=== PATIENT | female | born 1965 | race American Indian/Alaskan Native ===

== ENCOUNTER 2020-04-20 22:14 | Emergency (ER) | payer BC ==
[2020-04-20] MEDS ORDERED: HYDROmorphone 0.5 MG/0.5 ML Syringe IVPUSH ONE (23:15)
[2020-04-20] MEDS: Sodium Chloride 0.9% 1,000 ML IV SCH (23:25)
[2020-04-21] MEDS: Sodium Chloride 0.9% 1,000 ML IV SCH (00:43)
[2020-04-21] MEDS ORDERED: Sodium Chloride 0.9% 1,000 ML IV SCH (00:45)
--- NOTE | 2020-04-21 00:46 | EDM.PDOC ---
ED HPI GENERAL MEDICAL PROBLEM - General Chief Complaint: Abdominal Pain Stated Complaint: UPPER ABDOMINAL PAIN Time Seen by Provider: 04/20/20 22:40 Source of Information: Reports: Patient History Limitations: Reports: No Limitations - History of Present Illness INITIAL COMMENTS - FREE TEXT/NARRATIVE: pt is having severe upper abdomanal pain which started about 5 pm. She had been in [place] and after getting home this started. She has not vomited. She has not had pain like this in the past. Onset: Today, Sudden, Other (pt had eaten some calix and fried potatoes. ) Duration: Hour(s): Location: Reports: Abdomen Associated Symptoms: Reports: Weakness Epigastric Pain Score (Numeric/FACES): 5 - Related Data Allergies Allergy/AdvReac Type Severity Reaction Status Date / Time No Known Allergies Allergy Verified 04/20/20 22:52 Home Meds: Home Meds Calcium Carbonate [Calcium] 500 mg PO DAILY 04/20/20 [History] Cholecalciferol (Vitamin D3) [Vitamin D] 5,000 unit PO DAILY 04/20/20 [History] Levothyroxine Sodium [Synthroid] 25 mcg PO DAILY 04/20/20 [History] Sertraline HCl [Zoloft] 200 mg PO DAILY 04/20/20 [History] Thyroid,Pork [[place] Thyroid] 30 mg PO DAILY 04/20/20 [History] Past Medical History HEENT History: Reports: Impaired Vision 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: Musculoskeletal History: Reports: Fracture, Other (See Below) Other Musculoskeletal History: compression fracture L1 Psychiatric History: Reports: Panic Attack Endocrine/Metabolic History: Reports: Hypothyroidism - Infectious Disease History Infectious Disease History: Reports: Chicken Pox - Past Surgical History Musculoskeletal Surgical History: Reports: Other (See Below) Other Musculoskeletal Surgeries/Procedures:: left ankle surg Social & Family History - Tobacco Use Smoking Status *Q: Never Smoker Second Hand Smoke Exposure: No - Caffeine Use Caffeine Use: Reports: Coffee - Recreational Drug Use Recreational Drug Use: No ED ROS GENERAL - Review of Systems Review Of Systems: See Below Constitutional: Reports: No Symptoms HEENT: Reports: No Symptoms Respiratory: Reports: No Symptoms Cardiovascular: Reports: No Symptoms Endocrine: Reports: No Symptoms GI/Abdominal: Reports: Abdominal Pain, Nausea : Reports: No Symptoms Musculoskeletal: Reports: No Symptoms Skin: Reports: No Symptoms Neurological: Reports: No Symptoms ED EXAM, GI/ABD - Physical Exam Exam: See Below Text/Narrative:: pt arrived with acute upper abdomanal pain. She states this started suddenly about 5 pm. Earlier in the day she had eaten some greasey foods. She had normal stools. Exam Limited By: No Limitations General Appearance: Alert, Anxious, Moderate Distress, Other (pt is rating her pain at a 7. ) Ears: Normal TMs Nose: Normal Inspection Throat/Mouth: Normal Inspection Head: Atraumatic Neck: Normal Inspection Respiratory/Chest: No Respiratory Distress Cardiovascular: Regular Rate, Rhythm GI/Abdominal Exam: Other (pt is tender in the upper abdoman. ) (Female) Exam: Deferred Rectal (Female) Exam: Deferred Back Exam: Normal Inspection Extremities: Normal Inspection Neurological: Alert, Oriented, Normal Cognition Course - Vital Signs Last Recorded V/S: Last Vital Signs Temp 35.0 C L 04/20/20 23:56 Pulse 58 L 04/20/20 23:56 Resp 18 04/20/20 23:56 BP 144/72 H 04/20/20 23:56 Pulse Ox 98 04/20/20 23:56 - Orders/Labs/Meds Orders: Active Orders 24 hr Category Date Time Status Abdomen Ltd [US] Stat Exams 04/20/20 23:31 Taken UA W/MICROSCOPIC [URIN] Urgent Lab 04/20/20 22:39 Ordered Sodium Chloride 0.9% [Normal Saline] 1,000 ml Med 04/20/20 23:15 Active IV ASDIRECTED Sodium Chloride 0.9% [Normal Saline] 1,000 ml Med 04/21/20 00:45 Active IV ASDIRECTED Medication Orders Sodium Chloride (Normal Saline) 1,000 mls @ 999 mls/hr IV ASDIRECTED AGA Last Admin: 04/21/20 00:43 Dose: 999 mls/hr Infusion: 04/21/20 00:26 Dose: 999 mls/hr Admin: 04/20/20 23:25 Dose: 999 mls/hr Sodium Chloride (Normal Saline) 1,000 mls @ 999 mls/hr IV ASDIRECTED AGA Last Admin: 04/21/20 00:44 Dose: 999 mls/hr Labs: Laboratory Tests 04/20/20 04/20/20 04/20/20 Range/Units 22:47 22:47 22:47 WBC 8.8 (4.5-11.0) K/uL RBC 4.35 (3.30-5.50) M/uL Hgb 12.1 (12.0-15.0) g/dL Hct 38.1 (36.0-48.0) % MCV 88 (80-98) fL MCH 28 (27-31) pg MCHC 32 (32-36) % Plt Count 230 (150-400) K/uL Neut % (Auto) 77 H (36-66) % Lymph % (Auto) 14 L (24-44) % [place] % (Auto) 6 (2-6) % Eos % (Auto) 3 (2-4) % Baso % (Auto) 1 (0-1) % Sodium 141 (140-148) mmol/L Potassium 4.1 (3.6-5.2) mmol/L Chloride 105 (100-108) mmol/L Carbon Dioxide 28 (21-32) mmol/L Anion Gap 7.6 (5.0-14.0) mmol/L BUN 14 (7-18) mg/dL Creatinine 1.2 H (0.6-1.0) mg/dL Est Cr Clr Drug Dosing 46.82 mL/min Estimated GFR (MDRD) 47 L (>60) Glucose 124 H (74-106) mg/dL Calcium 8.5 (8.5-10.1) mg/dL Total Bilirubin 0.8 (0.2-1.0) mg/dL AST 113 H (15-37) U/L ALT 72 (12-78) U/L Alkaline Phosphatase 85 (46-116) U/L C-Reactive Protein 0.32 H (0.0-0.3) mg/dL Total Protein 7.3 (6.4-8.2) g/dL Albumin 4.1 (3.4-5.0) g/dL Globulin 3.2 (2.3-3.5) g/dL Albumin/Globulin Ratio 1.3 (1.2-2.2) Lipase (73-393) U/L 04/20/20 Range/Units 22:47 WBC (4.5-11.0) K/uL RBC (3.30-5.50) M/uL Hgb (12.0-15.0) g/dL Hct (36.0-48.0) % MCV (80-98) fL MCH (27-31) pg MCHC (32-36) % Plt Count (150-400) K/uL Neut % (Auto) (36-66) % Lymph % (Auto) (24-44) % [place] % (Auto) (2-6) % Eos % (Auto) (2-4) % Baso % (Auto) (0-1) % Sodium (140-148) mmol/L Potassium (3.6-5.2) mmol/L Chloride (100-108) mmol/L Carbon Dioxide (21-32) mmol/L Anion Gap (5.0-14.0) mmol/L BUN (7-18) mg/dL Creatinine (0.6-1.0) mg/dL Est Cr Clr Drug Dosing mL/min Estimated GFR (MDRD) (>60) Glucose (74-106) mg/dL Calcium (8.5-10.1) mg/dL Total Bilirubin (0.2-1.0) mg/dL AST (15-37) U/L ALT (12-78) U/L Alkaline Phosphatase (46-116) U/L C-Reactive Protein (0.0-0.3) mg/dL Total Protein (6.4-8.2) g/dL Albumin (3.4-5.0) g/dL Globulin (2.3-3.5) g/dL Albumin/Globulin Ratio (1.2-2.2) Lipase 132 (73-393) U/L Meds: Medications Generic Name Dose Route Start Last Admin Trade Name Manuelq PRN Reason Stop Dose Admin Sodium Chloride 1,000 mls @ 999 mls/hr 04/20/20 23:15 04/21/20 00:43 Normal Saline IV 999 mls/hr ASDIRECTED AGA Administration Sodium Chloride 1,000 mls @ 999 mls/hr 04/21/20 00:45 04/21/20 00:44 Normal Saline IV 999 mls/hr ASDIRECTED AGA Administration Discontinued Medications Generic Name Dose Route Start Last Admin Trade Name Freq PRN Reason Stop Dose Admin Hydromorphone HCl 0.5 mg 04/20/20 23:15 04/20/20 23:27 Dilaudid IVPUSH 04/20/20 23:16 0.5 mg ONETIME ONE Administration - Re-Assessments/Exams Free Text/Narrative Re-Assessment/Exam: 04/21/20 00:47 pt was given 1.5 liters of fluid. She had a Us on her GB. She had mild thickening of the GB wall and she had a stone in the GB. Her common duct did look wide. She is much more comfortable at this point. Departure - Departure Time of Disposition: 00:48 Disposition: Home, Self-Care 01 Condition: Fair Clinical Impression: Gallbladder calculus with acute cholecystitis and no obstruction - Discharge Information Referrals: PCP,None [Primary Care Provider] - Forms: ED Department Discharge Care Plan Goals: avoid greasey food, appt with the surgeon to discuss her situation, rtc if her pain should reoccur. norco 5/325 q6h prn for pain #6 Sepsis Event Note - Evaluation Sepsis Screening Result: No Definite Risk - Focused Exam Vital Signs: Vital Signs Temp Pulse Resp BP Pulse Ox 04/20/20 23:56 35.0 C L 58 L 18 144/72 H 98 04/20/20 22:33 35.0 C L 58 L 18 144/72 H 98 Date Exam was Performed: 04/21/20 Time Exam was Performed: 00:55 - My Orders Last 24 Hours: My Active Orders 04/20/20 22:39 UA W/MICROSCOPIC [URIN] Urgent 04/20/20 23:15 Sodium Chloride 0.9% [Normal Saline] 1,000 ml IV ASDIRECTED 04/21/20 00:45 Sodium Chloride 0.9% [Normal Saline] 1,000 ml IV ASDIRECTED - Assessment/Plan Last 24 Hours: My Active Orders 04/20/20 22:39 UA W/MICROSCOPIC [URIN] Urgent 04/20/20 23:15 Sodium Chloride 0.9% [Normal Saline] 1,000 ml IV ASDIRECTED 04/21/20 00:45 Sodium Chloride 0.9% [Normal Saline] 1,000 ml IV ASDIRECTED
--- NOTE | 2020-04-21 01:09 | CRLUS ---
INDICATION: Right upper quadrant pain TECHNIQUE: Ultrasound abdomen limited. Sonographic images of the right upper quadrant were obtained using solis-scale and color Doppler images. COMPARISON: None FINDINGS: Liver: Normal in size with diffuse fatty infiltration and probable areas of focal fatty scarring. No masses. Evidence of intrahepatic biliary dilatation. Gallbladder: 9 millimeter mobile gallstone gallbladder wall thickening at 4 millimeters. No pericholecystic fluid. Common bile duct: 9 mm. Pancreas: Normal. Right kidney: 8.8 cm. Normal echotexture and cortex. No masses, stones, or hydronephrosis. Vasculature: Proximal abdominal aorta and IVC are normal. IMPRESSION: Dilated common bile duct to 9 millimeters with intrahepatic biliary ductal dilatation. Fatty infiltration of liver with areas of focal fatty sparing. 9 millimeter mobile gallstone with gallbladder wall thickening up to 4 millimeters. Dictated by Montana Perez MD @ 04/21/2020 1:07:41 AM Dictated by: Montana Perez MD @ 04/21/2020 01:07:45 (Electronically Signed)
== END 2020-04-21 01:20 | disposition home or self-care (01) ==
LOC: JP.ED 22:14
DX: K80.00 Calculus of gallbladder with acute cholecystitis without obstruction (principal); E03.9 Hypothyroidism, unspecified; Z79.899 Other long term (current) drug therapy
CPT/HCPCS: 36415; 76705; 80053; 83690; 85025; 86140; 99284; J1170; J7030

== ENCOUNTER 2020-05-10 06:43 | Day surgery (SDC) | payer BC ==
[2020-05-10] MEDS ORDERED: Sodium Chloride 0.9% 1,000 ML IV SCH (07:00)
[2020-05-10] MEDS: Bupivacaine 0.5% 50 ML MDV ONE ×2 (07:15→08:25)
[2020-05-10] MEDS: Lidocaine 1% with EPINEPHrine 1:100,000 50 ML MDV ONE ×2 (07:16→08:25)
[2020-05-10] MEDS ORDERED: Dexamethasone 4 MG/ML SDV ONE (07:24)
[2020-05-10] MEDS ORDERED: fentaNYL 250 MCG/5 ML SDV ONE (07:24)
[2020-05-10] MEDS ORDERED: Neostigmine Methylsulfate 1 MG/ML 5 ML Syringe ONE (07:24)
[2020-05-10] MEDS ORDERED: Glycopyrrolate 0.2 MG/ML 5 ML MDV ONE (07:24)
[2020-05-10] MEDS ORDERED: Ondansetron 4 MG/2 ML SDV ONE (07:24)
[2020-05-10] MEDS ORDERED: Propofol 200 MG/20 ML SDV ONE (07:24)
[2020-05-10] MEDS ORDERED: Rocuronium 50 MG/5 ML Vial ONE (07:24)
[2020-05-10] MEDS ORDERED: Lidocaine 1% 2 ML ONE (07:43)
[2020-05-10] MEDS ORDERED: metroNIDAZOLE/Normal Saline 500 MG in Premix Bag 1 BAG IV ONE (08:00)
[2020-05-10] MEDS ORDERED: ceFAZolin 2 GM in Premix Bag 1 BAG IV ONE (08:00)
[2020-05-10] MEDS ORDERED: fentaNYL 100 MCG/2 ML SDV ONE (08:02)
[2020-05-10] MEDS ORDERED: Ropivacaine 38 ML, dexAMETHasone 8 MG, EPINEPHrine 0.4 MG, Sodium Chloride 0.9% 39.6 ML NERVRT SCH ×4 (08:15)
[2020-05-10] MEDS ORDERED: Ketorolac 60 MG/2 ML SDV ONE (08:22)
[2020-05-10] MEDS ORDERED: Scopolamine 1.5 MG Transdermal Patch ONE (08:22)
--- NOTE | 2020-05-10 11:48 | OR ---
DATE OF PROCEDURE: 05/10/2020 SURGEON: German Cabello MD PROCEDURE: Laparoscopic cholecystectomy. PREOPERATIVE DIAGNOSIS: Cholecystitis. POSTOPERATIVE DIAGNOSIS: Cholecystitis. COMPLICATIONS: None. 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 ANESTHESIA: General/local. RISKS: Risks, benefits, alternatives, and limitations including, but not limited to infection, bleeding, perforation of abdominal structures such as bowel, bladder, blood vessels. We also discussed cystic duct leaks and common bile duct injuries, and the possibility of open repair. PROCEDURE IN DETAIL: The patient was placed in a supine position. A supraumbilical curvilinear incision was made. A Veress needle was used to enter the abdomen without abnormality. A drop test was performed without abnormality. This was followed by an Optiview trocar. No abnormalities were noted during entry. A 10 and 2 additional 5s were entered under direct visualization. The gallbladder was retracted cephalad and the infundibulum retracted inferolaterally. Using blunt dissection, a "clear view" of the gallbladder was obtained with a single pulsatile structure entering the gallbladder and a single non-pulsatile structure entering the gallbladder. These were clipped x3 and subsequently transected. Of note, the cystic duct was also large, and therefore, a cordoba load stapler was used to transect this. This was more of a fusiform type of gallbladder, creating a larger cystic duct, which clearly entered the gallbladder. The remaining one third of the gallbladder was removed off the gallbladder bed with electrocautery. This was delivered through the superior port without difficulty. The abdomen was thoroughly irrigated. The pressure was dropped. No abnormal bleeding was noted. The liquid was removed. The air was removed. The wounds were closed with 3-0 Vicryl and 4-0 Vicryl in interrupted and running fashion. Dermabond was applied. The patient tolerated the procedure well. German Cabello MD /[id number]
--- NOTE | 2020-05-10 12:21 | OR ---
DATE OF PROCEDURE: 05/10/2020 SURGEON: German Cabello MD PROCEDURE: Transversus abdominis plane block bilaterally. COMPLICATIONS: None. MANAGER ADMINISTRATIVE SERVICES: None. RISKS: Risks, benefits, alternatives, and limitations including, but not limited to infection, bleeding, and injury to abdominal structures. PROCEDURE IN DETAIL: The patient was placed in the supine position. The left transversus plane was identified first. 80% of the solution was injected under direct visualization. The other side was then performed in a same manner, same fashion, same technique in the same sequence, using the same equipment, except for a different needle and syringe. The patient tolerated the procedure well. German Cabello MD /[id number]
== END 2020-05-10 14:00 ==
LOC: JP.SDS 06:43 → JP.MS 09:00 → JP.SDS 14:00
PROVIDERS: ATTEND Surgery
DX: K80.10 Calculus of gallbladder with chronic cholecystitis without obstruction (principal); E03.9 Hypothyroidism, unspecified; F32.9 Major depressive disorder, single episode, unspecified; F41.9 Anxiety disorder, unspecified; Z79.890 Hormone replacement therapy
CPT/HCPCS: 36415; 47562; 80053; 85027; 88304; A9270; J0171; J0690; J1100; J1885; J2001; J2405; J2704; J2710; J2795; J3010; J3490; J7030; J7050